=== PATIENT | female | born 1985 | race Caucasian/White ===

== ENCOUNTER 2016-07-28 07:00 | Day surgery (SDC) | payer MEDICAID ==
[~2016-07-28] VITALS: Ht 167.6 cm; Wt 97.5 kg
[~2016-07-28 07:00] MED LIST: AMOXICOT500 M1 PO; AMOXIL500 MG PO; BENZONATATE100 M1 PO; DARVOCET-N 1001 EACH PO; FLEXERIL10 MG PO; IBU-8800 MG PO; LORTAB 5/500 501 TAB PO; MOTRIN 400MG.400 MG PO; MOTRIN800 MG PO; NOMEDS; PERCOCET 5/3251 EACH PO; RA PRENATAL TABLET PO; ROBAXIN500 MG PO; SEPTRA DS 800 M1 TAB PO; SERTRALINE 50MG50 MG PO; ZITHROMAX Z-PA250 M1 PO
--- NOTE | 2016-07-28 07:58 | Operative Note ---
Procedure/Operative Record Procedure Date of procedure: 07/28/16 Pre-Op Dx: Menorrhagia Post-Op Dx: Menorrhagia Procedure performed: Hysteroscopy, dilation and curettage, NovaSure ablation Surgeon: Dr. Brian Johnson Sports Broadcaster(s): None Anesthesia: Tung Jesus EBL (ml): 50 Clinical note: She is a 31-year-old 5 para 3 aborta 2 lady who complains of severe heavy periods. She complains of pain with her periods. After having discussed the risks and benefits we elected to perform a hysteroscopy, D and C and NovaSure ablation. Operative findings: She had an anteverted bulky uterus that sounded to 9 cm. The endometrium had a somewhat erythematous appearance possibly consistent with chronic endometritis. The width of the endometrium was 4.4 cm and the length was 5.5 cm. These values were set within the NovaSure device. Operative note: She was taken the operating room where LMA anesthesia was found be adequate. She was prepped and draped in normal sterile fashion in the lithotomy position. A weighted speculum was placed in the vagina and the anterior lip of the cervix was grasped with a tenaculum. Pham dilators used to guide the cervix up to approximately 6 mm. I then inserted a hysteroscope into the uterine cavity using saline as a distending media. The findings were as previous see dictated. We then performed a gentle curettage. The NovaSure device was then placed within the uterine cavity and the settings were set on the machine. It was run through its program. We then inspected the endometrial cavity afterwards and it seemed that the entire endometrial cavity was charred. I then injected approximately 25 mL of 0.5 percent ropivacaine at the 5:00 and 7:00 positions in the cervix. The patient tolerated the procedure well and was taken to the recovery room in excellent condition. All sponge instrument and needle counts were correct. The estimated blood loss was less than cc. Conplications: None Specimens: Endometrial curettings at [id number]
[2016-07-28 13:08] VITALS: BP 113/69
== END 2016-07-28 10:55 | disposition home or self-care (01) ==
LOC: SDC 07:00
PROVIDERS: Nurse Practitioner Obstetrics & Gynecology
PROC: 0U5B8ZZ Destruction of Endometrium, Via Natural or Artificial Opening Endoscopic (ICD-10-PCS; principal; 2016-07-28 07:30)
DX: N92.0 Excessive and frequent menstruation with regular cycle (principal)
CPT/HCPCS: J2405